=== PATIENT | female | born 1970 | race African-American/Black ===

== ENCOUNTER 2018-06-11 19:23 | Emergency (ER) | payer MEDICAID ==
[~2018-06-11] VITALS: Ht 165.1 cm; Wt 86.4 kg
[2018-06-11 19:26] VITALS: Ht 165.1 cm; Wt 86.4 kg
[2018-06-11] MEDS ORDERED: GLUCOPHAGE1000 MG PO (19:27)
[2018-06-11] MEDS ORDERED: NORVASC5 MG PO (19:28)
[2018-06-11] MEDS ORDERED: HYDROCHLOROTH12.5 M1 PO (19:28)
[2018-06-11] MEDS ORDERED: TORADOL10 MG PO (20:42)
[2018-06-11 20:57] VITALS: BP 132/84
== END 2018-06-11 21:01 | disposition home or self-care (01) ==
LOC: D.ER 19:23
DX: S39.012A Strain of muscle, fascia and tendon of lower back, initial encounter (principal); X58.XXXA Exposure to other specified factors, initial encounter; Y93.89 Activity, other specified; Y92.89 Other specified places as the place of occurrence of the external cause; S16.1XXA Strain of muscle, fascia and tendon at neck level, initial encounter; M54.2 Cervicalgia; I10 Essential (primary) hypertension; F17.200 Nicotine dependence, unspecified, uncomplicated